=== PATIENT | male | born 1950 | race Caucasian/White ===

== ENCOUNTER 2022-06-25 10:21 | Outpatient (CLI) | payer OTHER, SELFPAY ==
[2022-06-25 11:39] LABS: Creatinine* 0.8 mg/dL (0.5-1.5); Estimated Glomerular Filt Rate 94 ml/min
== END 2022-06-25 10:22 | disposition home or self-care (01) ==
PROVIDERS: PCP Internal Medicine; Visit Provider Internal Medicine
DX: C79.31 Secondary malignant neoplasm of brain (principal)
CPT/HCPCS: 36415; 70553; 82565; A9575

== ENCOUNTER 2022-09-10 10:02 | Outpatient (CLI) | payer MEDICARE, OTHER, SELFPAY | END 2022-09-10 10:03 | disposition home or self-care (01) | PROVIDERS: PCP Internal Medicine; Visit Provider Internal Medicine | DX: C79.31 Secondary malignant neoplasm of brain (principal) | CPT/HCPCS: 70553; A9575 ==

== ENCOUNTER 2023-03-17 10:06 | Outpatient (CLI) | payer MEDICARE, SELFPAY | END 2023-03-17 10:07 | disposition home or self-care (01) | LOC: MRI 10:07 | PROVIDERS: PCP Family Medicine; Visit Provider Internal Medicine | DX: C79.31 Secondary malignant neoplasm of brain (principal) | CPT/HCPCS: 70553; A9575 ==

== ENCOUNTER 2023-05-24 09:02 | Outpatient (CLI) | payer MEDICARE, SELFPAY ==
--- NOTE | 2023-05-24 09:15 | CRLHL7_ITS ---
For Patients: As a result of the Century Cures Act, medical imaging exams and procedure reports are released immediately into your electronic medical record. You may view this report before your referring provider. If you have questions, please contact your health care provider. 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 Technique: Noncontrast sagittal T1, axial FLAIR, T2 turbo spine echo, and diffusion weighted images. Supplemental post contrast T1 weighted axial and coronal sequences are provided after administration of 18 mL Dotarem gadolinium-based IV contrast. Comparison: MRI 03/17/2023 Findings: The ventricles, sulci and gyri are normal size, shape and contour for age. The midline structures are centrally located with no evidence of shift. There are no suspicious intra or extra-axial fluid collections. No evidence of restricted diffusion to suggest acute ischemia. Multiple scattered foci of T2 prolongation in the cerebral white matter are nonspecific but may represent chronic small vessel ischemic changes. 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 Multiple scattered foci of T2 prolongation in the cerebral white matter are nonspecific. Expected flow voids in the cavernous carotids and basilar artery. No abnormal contrast enhancement involving the brain parenchyma, meninges, calvarium or skull base. Incidental chronic bilateral orbital floor fractures with herniation of extraconal fat into the superior aspects of the maxillary sinuses. 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 Oral dentures are in position. Impression: 1. No evidence of acute intracranial abnormality. 2. 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 3. Multiple scattered foci of T2 prolongation in the cerebral white matter are nonspecific but may represent chronic small vessel ischemic changes. 4. No pathologic enhancement to suggest intracranial metastases. Dictated by Perry Gilliam MD @ 05/24/2023 11:32:55 AM (Electronically Signed)
== END 2023-05-24 09:03 | disposition home or self-care (01) ==
LOC: MRI 09:03
PROVIDERS: PCP Family Medicine; Visit Provider Internal Medicine
DX: C79.31 Secondary malignant neoplasm of brain (principal); I63.9 Cerebral infarction, unspecified; I67.82 Cerebral ischemia
CPT/HCPCS: 70553; A9575

== ENCOUNTER 2023-09-03 12:41 | Outpatient (CLI) | payer OTHER, SELFPAY | END 2023-09-03 12:42 | disposition home or self-care (01) | PROVIDERS: PCP Family Medicine; Visit Provider Nurse Practitioner | DX: C34.12 Malignant neoplasm of upper lobe, left bronchus or lung (principal); C79.31 Secondary malignant neoplasm of brain | CPT/HCPCS: 70553; A9575 ==